=== PATIENT | female | born 1995 | race Caucasian/White ===

== ENCOUNTER 2017-11-11 15:47 | Emergency (ER) | payer OTHER ==
[~2017-11-11] VITALS: Ht 162.6 cm; Wt 68.4 kg
[2017-11-11 16:06] VITALS: Ht 162.6 cm; Wt 68.4 kg
--- NOTE | 2017-11-11 18:53 | RADRPT ---
PROCEDURE: US Pelvis. CLINICAL INDICATION: vaginal bleeding TECHNIQUE: Multiple sonographic images of the pelvis were obtained utilizing a transabdominal and endovaginal technique. The images were reviewed on a PACS workstation. COMPARISON: None. FINDINGS: The uterus is normal in size and demonstrates a normal appearance of the myometrium. The endometria l stripe is homogeneous in appearance and has the thickness of 5.7 mm. No intrauterine gestation is noted. The ovaries are normal in size and echogenicity. Normal Doppler flow is identified in both ovaries. The right ovary measures 2.5 x 1.8 x 1.8 cm. The left ovary measures 2.3 x 1.5 x 1.9 cm. There is a 0.9 cm hemorrhagic cyst in the left ovary. Th ere is a 0.8 cm simple cyst in the left ovary. No free fluid is present within the pelvis.. RPTAT: AA IMPRESSION: No intrauterine gestation visualized. Differential diagnosis includes early , missed or ectopic . Follow-up ultrasound and HCG levels is recommended. Small hemorrhagic cyst and simple cyst in the left ovary. .Víctor Marino MD, MD Date Time Electronically viewed and signed by .Víctor Marino MD, on 11/11/2017 18:52 .S/
[2017-11-11 19:08] LABS: BASOPHILS % 0.5 % (0.0-2.0); EOSINOPHILS # 0.1 10^3/ul (0.0-0.5); EOSINOPHILS % 1.7 % (0.0-7.0); HEMATOCRIT 40.2 % (37.0-47.0); HEMOGLOBIN 13.2 g/dl (12.0-16.0); LYMPHOCYTES # 1.8 10^3/ul (0.8-2.9); LYMPHOCYTES % 23.3 % (18.0-55.0); MEAN CORPUSCULAR HEMOGLOBIN 26.3 pg (29.0-33.0); MEAN CORPUSCULAR HGB CONC 32.8 g/dl (32.0-37.0); MEAN CORPUSCULAR VOLUME 80.1 fl (72.0-104.0); MEAN PLATELET VOLUME 9.5 fl (7.4-10.4); MONOCYTE # 0.5 10^3/ul (0.3-0.9); MONOCYTES % 6.4 % (0.0-13.0); NEUTROPHIL # 5.1 10^3/ul (1.6-7.5); NEUTROPHILS % 67.8 % (30.0-74.0); PLATELET COUNT 315 10^3/UL (140-415); RED BLOOD COUNT 5.02 10^6/ul (4.20-5.40); RED CELL DISTRIBUTION WIDTH 13.7 % (11.5-14.5); WHITE BLOOD COUNT 7.6 10^3/ul (4.8-10.8)
[2017-11-11 19:18] LABS: ADD UMIC NO; UR ASCORBIC ACID NEGATIVE (NEGATIVE); UR BILIRUBIN (Dip) NEGATIVE (NEGATIVE); UR BLOOD (Dip) NEGATIVE (NEGATIVE); UR CLARITY SLIGHTLY CLOUDY (CLEAR); UR COLOR YELLOW (YELLOW); UR GLUCOSE (Dip) NEGATIVE (NEGATIVE); UR KETONES (Dip) NEGATIVE (NEGATIVE); UR LEUKOCYTE ESTERASE (Dip) NEGATIVE Leu/ul (NEGATIVE); UR NITRITE (Dip) NEGATIVE (NEGATIVE); UR RBC 1 /HPF (0-5); UR SPECIFIC GRAVITY (Dip) 1.016 (1.003-1.030); UR SQUAMOUS EPITHELIAL CELL FEW /HPF (FEW); UR TOTAL PROTEIN (Dip) NEGATIVE (NEGATIVE); UR UROBILINOGEN (Dip) NEGATIVE (NEGATIVE)
--- NOTE | 2017-11-11 20:39 | ERD ---
ER Documentation Chief Complaint Chief Complaint lower left pelvic pain x 2 weeks 3 weeks HPI 22 yr old female complaining of left pelvic pain with vaginal bleeding x 2 weeks. Patient was told 11/07/17 that she was . Had bleeding on Nov 01 that has resolved. Beta quant level was 254 on 11/07/17. A0. Medical problems : bipolar ROS All systems reviewed and are negative except as per history of present illness. PMhx/Soc Medical and Surgical Hx: pt denies Medical Hx, pt denies Surgical Hx History of Surgery: No Anesthesia Reaction: No Hx Neurological Disorder: No Hx Respiratory Disorders: No Hx Cardiac Disorders: No Hx Psychiatric Problems: No Hx Miscellaneous Medical Probl: No Hx Alcohol Use: No Hx Substance Use: No Hx Tobacco Use: No Smoking Status: Never smoker Physical Exam Vitals Vital Signs Date Time Temp Pulse Resp B/P Pulse Ox O2 Delivery O2 Flow Rate FiO2 11/11/17 16:06 98.0 102 19 128/84 98 Physical Exam GENERAL: The patient is well-appearing, well-nourished, in no acute distress CHEST: Clear to auscultation bilaterally. There are no rales, wheezes or rhonchi. HEART: Regular rate and rhythm. No murmurs, clicks, rubs or gallops. No S3 or S4. ABDOMEN: Mild ttp to left pelvic region. nontender. Good bowel sounds. No rebound or guarding. No gross peritonitis. No gross organomegaly or masses. No Stephens sign or McBurney point tenderness. BACK: No midline or flank tenderness. SKIN: There is no apparent rash or petechiae. The skin is warm and dry. Result Diagram: 11/11/171851 Results 24 hrs Laboratory Tests Test 11/11/17 18:52 White Blood Count 7.610^3/ul Red Blood Count 5.0210^6/ul Hemoglobin 13.2g/dl Hematocrit 40.2% Mean Corpuscular Volume 80.1fl Mean Corpuscular Hemoglobin 26.3pg Mean Corpuscular Hemoglobin Concent 32.8g/dl Red Cell Distribution Width 13.7% Platelet Count 96809^3/UL Mean Platelet Volume 9.5fl Neutrophils % 67.8% Lymphocytes % 23.3% Monocytes % 6.4% Eosinophils % 1.7% Basophils % 0.5% Nucleated Red Blood Cells % 0.0/100WBC Neutrophils # 5.110^3/ul Lymphocytes # 1.810^3/ul Monocytes # 0.510^3/ul Eosinophils # 0.110^3/ul Basophils # 0.010^3/ul Nucleated Red Blood Cells # 0.010^3/ul Urine Color YELLOW Urine Clarity SLIGHTLY CLOUDY Urine pH 5.0 Urine Specific [place] 1.016 Urine Ketones NEGATIVEmg/dL Urine Nitrite NEGATIVEmg/dL Urine Bilirubin NEGATIVEmg/dL Urine Urobilinogen NEGATIVEmg/dL Urine Leukocyte Esterase NEGATIVELeu/ul Urine Microscopic RBC 1/HPF Urine Microscopic WBC 3/HPF Urine Squamous Epithelial Cells FEW/HPF Urine Hemoglobin NEGATIVEmg/dL Urine Glucose NEGATIVEmg/dL Urine Total Protein NEGATIVEmg/dl Beta HCG, Quantitative 55.1mIU/ml Procedures/[facility] DIAGNOSTIC IMAGING REPORT Patient: DENA DAVIDSON : 1995 Age: 22 Sex: F MR #: [id number] DOS: 11/11/17 1827 Ordering MD: JEAN-PAUL COATES PA-C Location: [facility] Room/Bed: PROCEDURE: US Pelvis. CLINICAL INDICATION: vaginal bleeding TECHNIQUE: Multiple sonographic images of the pelvis were obtained utilizing a transabdominal and endovaginal technique. The images were reviewed on a PACS workstation. COMPARISON: None. FINDINGS: The uterus is normal in size and demonstrates a normal appearance of the myometrium. The endometrial stripe is homogeneous in appearance and has the thickness of 5.7 mm. No intrauterine gestation is noted. The ovaries are normal in size and echogenicity. Normal Doppler flow is identified in both ovaries. The right ovary measures 2.5 x 1.8 x 1.8 cm. The left ovary measures 2.3 x 1.5 x 1.9 cm. There is a 0.9 cm hemorrhagic cyst in the left ovary. There is a 0.8 cm simple cyst in the left ovary. No free fluid is present within the pelvis.. RPTAT: AA IMPRESSION: No intrauterine gestation visualized. Differential diagnosis includes early , missed or ectopic . Follow-up ultrasound and HCG levels is recommended. Small hemorrhagic cyst and simple cyst in the left ovary. MDM: 22 yr old female planing of left lower pelvic pain. I have low suspicion for ectopic as beta hCG is decreasing. Patient's urine is within normal limits. Patient's blood type is O+ and does not require RhoGam injection at this time. Patient's hemoglobin is stable and patient is not experiencing vaginal bleeding. Patient is experiencing a miscarriage in their no retained products seen on ultrasound. Patient is recommended to follow-up with OB for reevaluation in the next 1-2 days. I have low suspicion for other acute abdominal emergencies at this time as patient's exam is non-concerning. Patient is discharged with strict ER precautions. All questions answered at discharge. Departure Diagnosis: Primary Impression: Miscarriage Condition: Stable Patient Instructions: Miscarriage Referrals: [employer] [place] [id number] [facility] [address] [place] [address]ABUSLEME [address]NA [address] [place] [address] [address] [place] [address] [place] [address] [address] [facility] [address] [facility], [address] [facility] [address] [address] [address] [place] [address] [facility] [address] [place] [address] [address] [facility] [id number] - JOSE ALFREDO BURGER [address], [facility] [address] [address] [address] [facility], [place] [address] [address]LY [address] [address] [place] [address] Additional Instructions: FOLLOW UP WITH YOUR PRIMARY CARE PHYSICIAN TOMORROW.Return to this facility if you are not improving as expected. TYAO COATES PA-C Nov 11, 2017 20:39
== END 2017-11-11 20:31 | disposition home or self-care (01) ==
LOC: FTE 15:47
DX: O03.9 Complete or unspecified spontaneous abortion without complication (principal); R10.2 Pelvic and perineal pain
CPT/HCPCS: 36415; 76801; 76817; 81001; 84702; 85025; 86900; 86901; Z7502; 81003